=== PATIENT | female | born 1980 | race African-American/Black ===

== ENCOUNTER 2017-11-05 10:49 | Emergency (ER) | payer MEDICAID ==
[~2017-11-05] VITALS: Ht 160 cm; Wt 118.0 kg
[~2017-11-05 10:49] MED LIST: AMLO5 PO; FIORIC PO; HYDR-3535 PO
[2017-11-05 10:51] VITALS: BP 154/90; PULSE 98; RESP 14; TEMP 98.9; O2SAT 98
[2017-11-05 11:57] LABS: AUTOMATED NEUTROPHIL # 6.1 TH/MM3 (1.8-7.7); BASOPHIL # 0.1 TH/MM3 (0-0.2); BASOPHIL % 0.9 % (0.0-2.0); EOSINOPHIL # 0.3 TH/MM3 (0-0.4); EOSINOPHIL % 3.5 % (0.0-4.0); HEMATOCRIT 41.3 % (35.0-46.0); HEMOGLOBIN 13.2 GM/DL (11.6-15.3); LYMPH % 23.1 % (9.0-44.0); LYMPHOCYTE # 2.2 TH/MM3 (1.0-4.8); MEAN CELL VOLUME 75.8 FL (80.0-100.0); MEAN CORPUSCULAR HEMOGLOBIN 24.3 PG (27.0-34.0); MEAN CORPUSCULAR HGB CONC 32.1 % (32.0-36.0); MEAN PLATELET VOLUME 8.6 FL (7.0-11.0); MONO % 7.2 % (0.0-8.0); MONOCYTE # 0.7 TH/MM3 (0-0.9); NEUT % 65.3 % (16.0-70.0); PLATELET COUNT 379 TH/MM3 (150-450); RED BLOOD COUNT 5.45 MIL/MM3 (4.00-5.30); RED CELL DISTRIBUTION WIDTH 16.5 % (11.6-17.2); WHITE BLOOD COUNT 9.4 TH/MM3 (4.0-11.0)
[2017-11-05 12:02] LABS: BACTERIA, URINE RARE /hpf; BILIRUBIN, URINE NEG (NEG); BLOOD, URINE SMALL (NEG); GLUCOSE,URINE NEG (NEG); KETONE, URINE NEG (NEG); MUCUS URINE FEW /lpf (OCC); NITRITE,URINE NEG (NEG); SQUAMOUS EPITHELIAL CELL URINE 10 /hpf (0-5); URINE COLOR YELLOW (YELLW/STRAW); URINE LEUKOCYTE ESTERASE NEG (NEG)
[2017-11-05] MEDS ORDERED: KETOROLAC TROMETHAMINE 60 MG/2 ML (IM) VIAL IM ONE (12:15)
[2017-11-05] MEDS ORDERED: ORPHENADRINE INJ 60 MG/2 ML AMP IM ONE (12:15)
[2017-11-05 12:21] LABS: ALBUMIN 3.7 GM/DL (3.4-5.0); AST (GOT) 12 U/L (15-37); BICARBONATE 29.2 MEQ/L (21.0-32.0); BLOOD UREA NITROGEN 9 MG/DL (7-18); CALCIUM 9.1 MG/DL (8.5-10.1); CHLORIDE 103 MEQ/L (98-107); CREATININE 0.76 MG/DL (0.50-1.00); GLOMERULAR FILTRATION RATE 103 ML/MIN (>89); GLUCOSE,RANDOM 147 MG/DL (74-106); SODIUM (NA) 137 MEQ/L (136-145)
[2017-11-05 12:25] LABS: ALKALINE PHOSPHATASE 94 U/L (45-117); ALT (GPT) 24 U/L (10-53); TOTAL BILIRUBIN ADULT 0.5 MG/DL (0.2-1.0); TOTAL PROTEIN 8.4 GM/DL (6.4-8.2)
--- NOTE | 2017-11-05 12:41 | PD ---
HPI Chief Complaint: Abdominal Pain Time Seen by Provider: 12:06 Travel History International Travel<30 days: No Contact w/Intl Traveler<30days: No Traveled to known affect area: No History of Present Illness HPI The patient is a 37-year-old female who presents to the emergency department for multiple complaints. The patient complains of right elbow pain, several days, states she can hear a "clicking "in the right elbow. She is right-hand dominant. She denies any difficulty with range of motion or weakness of the right upper extremity. She does have a history of carpal tunnel syndrome to both upper extremities, but denies any acute changes in her symptoms. She also complains of sciatica on the left lower extremity. The patient's pain starts in the left gluteal area, radiates down the left leg, sharp, and worse with certain positions. She also complains of generalized abdominal pain for several days with decreased appetite. She has been moving her bowels without difficulty, denies any nausea or vomiting. She does have a history of previous surgery for umbilical hernia repair. She denies any fever, chills, or sweats. She denies any dysuria. PFSH Past Medical History AAA: No ADD: No ADHD: No Alzheimer's Disease: No Anemia: No Arthritis: No Asthma: No Autoimmune Disease: No Blood Disorders: No Anxiety: No Depression: No Heart Rhythm Problems: No Cancer: No Cardiovascular Problems: Yes (HTN) High Cholesterol: No Chemotherapy: No Chest Pain: No Congestive Heart Failure: No COPD: No Cerebrovascular Accident: No Diabetes: No Dialysis: No Diminished Hearing: No Endocrine: No Gastrointestinal Disorders: Yes (UMBILICAL HERNIAS) GERD: No Glaucoma: No Genitourinary: No Headaches: No Hepatitis: No Hiatal Hernia: No Herniated Disk: Yes Hypertension: Yes Immune Disorder: No Kidney Stones: No Musculoskeletal: No Neurologic: No Psychiatric: No Respiratory: No Immunizations Current: Yes Migraines: Yes Myocardial Infarction: No Radiation Therapy: No Renal Failure: No Seizures: No Sickle Cell Disease: No Sleep Apnea: No Thyroid Disease: No Ulcer: No ?: Not LMP: 10/31/17 : 3 Para: 3 Miscarriage: 0 : 0 Tubal Ligation: Yes Past Surgical History Abdominal Surgery: Yes (HERNIA REPAIR -umbilical 2005, 2014) AICD: No Cardiac Surgery: No Section: Yes (x2) Cholecystectomy: Yes Ear Surgery: No Endocrine Surgery: No Eye Surgery: No Genitourinary Surgery: No Gynecologic Surgery: No Joint Replacement: No Neurologic Surgery: No Oral Surgery: No Pacemaker: No Thoracic Surgery: No Other Surgery: Yes (umbilical hernia REPAIR 11/11/14) Social History Alcohol Use: No Tobacco Use: Yes (09/23 ppd) Substance Use: Yes (marijuana) Allergies-Medications (Allergen,Severity, Reaction): Coded Allergies: No Known Allergies (Verified , 04/18/16) Reported Meds & Prescriptions Reported Meds & Active Scripts Active No Active Prescriptions or Reported Medications Review of Systems Except as stated in HPI: all other systems reviewed are Neg General / Constitutional: No: Fever Cardiovascular: No: Chest Pain or Discomfort Respiratory: No: Shortness of Breath Gastrointestinal: Positive: Abdominal Pain, No: Nausea, Vomiting, Diarrhea, Constipation Genitourinary: No: Dysuria Musculoskeletal: Positive: Pain, No: Limited ROM, Edema Neurologic: No: Paresthesia, Sensory Disturbance Physical Exam Narrative GENERAL: Awake, alert, nontoxic-appearing 37-year-old female who appears her stated age and is in no acute respiratory distress. SKIN: Focused skin assessment warm/dry. HEAD: Atraumatic. Normocephalic. EYES: No injection or drainage. ENT: No nasal bleeding or discharge. Mucous membranes pink and moist. NECK: Trachea midline. No JVD. CARDIOVASCULAR: Regular rate and rhythm. No murmur appreciated. RESPIRATORY: No accessory muscle use. Clear to auscultation. Breath sounds equal bilaterally. GASTROINTESTINAL: Abdomen soft, obese, minimal periumbilical tenderness. No guarding or rigidity. MUSCULOSKELETAL: No obvious deformities. No clubbing. No cyanosis. No edema. Full range of motion of the right elbow. No crepitus noted. She is able fully flex and extend the right elbow. Positive right radial pulse. Pain over the left gluteal area, positive straight leg on the left 60. NEUROLOGICAL: Awake and alert. No obvious cranial nerve deficits. Motor grossly within normal limits. Normal speech. Nonfocal. PSYCHIATRIC: Appropriate mood and affect; insight and judgment normal. Data Data Last Documented VS Vital Signs Date Time Temp Pulse Resp B/P (MAP) Pulse Ox O2 Delivery O2 Flow Rate FiO2 11/05/17 13:08 86 18 115/68 (84) 100 Room Air 11/05/17 10:51 98.9 Orders Orders Complete Blood Count With Diff (11/05/17 11:22) Comprehensive Metabolic Panel (11/05/17 11:22) Lipase (11/05/17 11:22) Urinalysis - C+S If Indicated (11/05/17 11:22) Ed Urine Pregnancytest Poc (11/05/17 11:22) Abdomen, Upright Only (11/05/17 ) Elbow, Limited (Ap&Lat) (11/05/17 ) Ketorolac Inj (Toradol Inj) (11/05/17 12:15) Orphenadrine Inj (Norflex Inj) (11/05/17 12:15) Labs Laboratory Tests Test 11/05/17 11:25 11/05/17 11:37 White Blood Count 9.4 TH/MM3 Red Blood Count 5.45 MIL/MM3 Hemoglobin 13.2 GM/DL Hematocrit 41.3 % Mean Corpuscular Volume 75.8 FL Mean Corpuscular Hemoglobin 24.3 PG Mean Corpuscular Hemoglobin Concent 32.1 % Red Cell Distribution Width 16.5 % Platelet Count 379 TH/MM3 Mean Platelet Volume 8.6 FL Neutrophils (%) (Auto) 65.3 % Lymphocytes (%) (Auto) 23.1 % Monocytes (%) (Auto) 7.2 % Eosinophils (%) (Auto) 3.5 % Basophils (%) (Auto) 0.9 % Neutrophils # (Auto) 6.1 TH/MM3 Lymphocytes # (Auto) 2.2 TH/MM3 Monocytes # (Auto) 0.7 TH/MM3 Eosinophils # (Auto) 0.3 TH/MM3 Basophils # (Auto) 0.1 TH/MM3 CBC Comment DIFF FINAL Differential Comment Blood Urea Nitrogen 9 MG/DL Creatinine 0.76 MG/DL Random Glucose 147 MG/DL Total Protein 8.4 GM/DL Albumin 3.7 GM/DL Calcium Level 9.1 MG/DL Alkaline Phosphatase 94 U/L Aspartate Amino Transf (AST/SGOT) 12 U/L Alanine Aminotransferase (ALT/SGPT) 24 U/L Total Bilirubin 0.5 MG/DL Sodium Level 137 MEQ/L Potassium Level 4.1 MEQ/L Chloride Level 103 MEQ/L Carbon Dioxide Level 29.2 MEQ/L Anion Gap 5 MEQ/L Estimat Glomerular Filtration Rate 103 ML/MIN Lipase 146 U/L Urine Color YELLOW Urine Turbidity HAZY Urine pH 6.0 Urine Specific [place] 1.020 Urine Protein TRACE mg/dL Urine Glucose (UA) NEG mg/dL Urine Ketones NEG mg/dL Urine Occult Blood SMALL Urine Nitrite NEG Urine Bilirubin NEG Urine Urobilinogen LESS THAN 2.0 MG/DL Urine Leukocyte Esterase NEG Urine RBC 1 /hpf Urine WBC 1 /hpf Urine Squamous Epithelial Cells 10 /hpf Urine Bacteria RARE /hpf Urine Mucus FEW /lpf Microscopic Urinalysis Comment CULT NOT INDICATED MDM Medical Decision Making Medical Screen Exam Complete: Yes Emergency Medical Condition: Yes Medical Record Reviewed: Yes Interpretation(s) Laboratory Tests Test 11/05/17 11:25 11/05/17 11:37 White Blood Count 9.4 TH/MM3 Red Blood Count 5.45 MIL/MM3 Hemoglobin 13.2 GM/DL Hematocrit 41.3 % Mean Corpuscular Volume 75.8 FL Mean Corpuscular Hemoglobin 24.3 PG Mean Corpuscular Hemoglobin Concent 32.1 % Red Cell Distribution Width 16.5 % Platelet Count 379 TH/MM3 Mean Platelet Volume 8.6 FL Neutrophils (%) (Auto) 65.3 % Lymphocytes (%) (Auto) 23.1 % Monocytes (%) (Auto) 7.2 % Eosinophils (%) (Auto) 3.5 % Basophils (%) (Auto) 0.9 % Neutrophils # (Auto) 6.1 TH/MM3 Lymphocytes # (Auto) 2.2 TH/MM3 Monocytes # (Auto) 0.7 TH/MM3 Eosinophils # (Auto) 0.3 TH/MM3 Basophils # (Auto) 0.1 TH/MM3 CBC Comment DIFF FINAL Differential Comment Blood Urea Nitrogen 9 MG/DL Creatinine 0.76 MG/DL Random Glucose 147 MG/DL Total Protein 8.4 GM/DL Albumin 3.7 GM/DL Calcium Level 9.1 MG/DL Alkaline Phosphatase 94 U/L Aspartate Amino Transf (AST/SGOT) 12 U/L Alanine Aminotransferase (ALT/SGPT) 24 U/L Total Bilirubin 0.5 MG/DL Sodium Level 137 MEQ/L Potassium Level 4.1 MEQ/L Chloride Level 103 MEQ/L Carbon Dioxide Level 29.2 MEQ/L Anion Gap 5 MEQ/L Estimat Glomerular Filtration Rate 103 ML/MIN Lipase 146 U/L Urine Color YELLOW Urine Turbidity HAZY Urine pH 6.0 Urine Specific [place] 1.020 Urine Protein TRACE mg/dL Urine Glucose (UA) NEG mg/dL Urine Ketones NEG mg/dL Urine Occult Blood SMALL Urine Nitrite NEG Urine Bilirubin NEG Urine Urobilinogen LESS THAN 2.0 MG/DL Urine Leukocyte Esterase NEG Urine RBC 1 /hpf Urine WBC 1 /hpf Urine Squamous Epithelial Cells 10 /hpf Urine Bacteria RARE /hpf Urine Mucus FEW /lpf Microscopic Urinalysis Comment CULT NOT INDICATED Last Impressions Abdomen X-Ray 11/05/17 0000 Signed Impressions: Service Date/Time: Sunday, November 05, 2017 12:37 - CONCLUSION: Extremely limited examination. No obvious obstruction or pneumoperitoneum. Michael Marino MD X-ray of the right elbow is unremarkable Differential Diagnosis Differential diagnosis includes osseous urethritis, strain, sprain, sciatica, radiculopathy, herniated disc, spinal stenosis, small bowel obstruction, gastritis, pancreatitis, PID, cervicitis, , ectopic . Narrative Course Labs were sent from protocol in triage. The patient was administered Toradol and Norflex IM. X-ray the right elbow was obtained. Upright x-ray was obtained to rule out small bowel obstruction. Bedside UA test was negative. Labs are unremarkable. X-ray of the right elbow is unremarkable. X- ray the abdomen reveals no small bowel obstruction. The patient is advised to apply ice and/or heat to the right elbow, activity as tolerated, follow-up with a primary physician. Ibuprofen and Flexeril as directed. Diagnosis Primary Impression: Sciatica Qualified Codes: M54.31 - Sciatica, right side Additional Impressions: Right elbow pain Abdominal pain Qualified Codes: R10.84 - Generalized abdominal pain Patient Instructions: General Instructions Additional Instructions: Please provide the patient a copy of her x-rays and lab results at discharge. Medications as directed. Follow-up with your primary physician. Med/Other Pt SpecificInfo: Prescription(s) given Scripts Cyclobenzaprine (Flexeril) 10 Mg Tab 10 MG PO TID for Muscle Spasm for 10 Days, #30 TAB 0 Refills Prov: Jose Cervantes MD 11/05/17 Ibuprofen (Ibuprofen) 600 Mg Tab 600 MG PO Q6H Y for Pain/Inflammation, #20 TAB 0 Refills Prov: Jose Cervantes MD 11/05/17 Disposition: DISCHARGE HOME Condition: Stable Jose Cervantes MD Nov 05, 2017 12:41
--- NOTE | 2017-11-05 13:02 | RADRPT ---
EXAM DATE/TIME: 11/05/2017 12:37 [facility] COMPARISON: No previous studies available for comparison. INDICATIONS : Abdominal pain; diahrrea. MEDICAL HISTORY : Hypertension. SURGICAL HISTORY : Cholecystectomy. Umbilical hernia repair. Tubal ligation. Hysterectomy. ENCOUNTER: Initial ACUITY: 2 weeks PAIN SCORE: 8/10 LOCATION: Bilateral abdomen. FINDINGS: A single erect view of the abdomen is extremely limited due to body habitus. Anatomic detail is marke dly diminished. No obvious obstruction or pneumoperitoneum. CONCLUSION: Extremely limited examination. No obvious obstruction or pneumoperitoneum. Michael Marino MD on November 05, 2017 at 12:58 Board Certified Radiologist. This report was verified electronically.
--- NOTE | 2017-11-05 13:02 | RADRPT ---
EXAM DATE/TIME: 11/05/2017 12:42 [facility] COMPARISON: No previous studies available for comparison. INDICATIONS : Right elbow pain for 1 week. MEDICAL HISTORY : None. SURGICAL HISTORY : None. ENCOUNTER: Initial ACUITY: 1 week PAIN SCORE: 5/10 LOCATION: Right elbow. FINDINGS: Two view examination of the right elbow demonstrates no soft tissue swelling, joint effusion, fractur e or dislocation. Bony mineralization is normal. CONCLUSION: Negative exam. No acute osseous injury. Michael Marino MD on November 05, 2017 at 12:59 Board Certified Radiologist. This report was verified electronically.
[2017-11-05 13:08] VITALS: BP 115/68; PULSE 86; RESP 18; O2SAT 100
[2017-11-05] MEDS ORDERED: IBUP-232 PO (13:28)
[2017-11-05] MEDS ORDERED: CYCL10TA PO (13:28)
== END 2017-11-05 13:45 | disposition home or self-care (01) ==
LOC: NEPD 10:49
DX: M54.31 Sciatica, right side (principal); M25.521 Pain in right elbow; R10.84 Generalized abdominal pain; G56.03 Carpal tunnel syndrome, bilateral upper limbs; I10 Essential (primary) hypertension; F17.200 Nicotine dependence, unspecified, uncomplicated
CPT/HCPCS: 73070; 74018; 80053; 81001; 83690; 84703; 85025; 96372; 99284; J1885; J2360